=== PATIENT | female | born 1990 | race Caucasian/White ===

== ENCOUNTER 2018-10-10 05:30 | Day surgery (SDC) | payer BC ==
[~2018-10-10] VITALS: Ht 149.9 cm; Wt 49.9 kg
[2018-10-10 05:55] LABS: HCG,QUAL RESULT NEGATIVE (NEGATIVE)
[2018-10-10] MEDS ORDERED: CEFAZOLIN SOD 1 GM in D5W 50 ML IV ONE (07:00)
[2018-10-10] MEDS ORDERED: IOHEXOL 50 ML IV ONE (07:33)
[2018-10-10] MEDS ORDERED: fentaNYL CITRATE/PF 100 MCG/2 ML AMP IVP PRN ×2 (08:30)
[2018-10-10] MEDS ORDERED: KETOROLAC TROMETHAMINE 30 MG VIAL IVP PRN (08:30)
[2018-10-10] MEDS ORDERED: ONDANSETRON HCL 4 MG/2 ML VIAL IVP PRN (08:30)
[2018-10-10] MEDS ORDERED: D5/0.45 NS 1,000 ML IV SCH (08:51)
[2018-10-10] MEDS ORDERED: HYDROmorphone 1 MG INJ. 1 MG/ML AMPUL IVP PRN (09:00)
[2018-10-10] MEDS ORDERED: HYDROcodone/ACETAMIN 5-325 MG TAB (NORCO/ VICODIN) PO PRN ×2 (09:00)
[2018-10-10] MEDS ORDERED: fentaNYL CITRATE/PF 100 MCG/2 ML AMP ONE (09:10)
[2018-10-10] MEDS ORDERED: ONDANSETRON HCL 4 MG/2 ML VIAL ONE (09:10)
[2018-10-10] MEDS ORDERED: HYDROcodone/ACETAMIN 5-325 MG TAB (NORCO/ VICODIN) ONE (10:52)
[2018-10-10 11:04] VITALS: BP_SYST 98
== END 2018-10-10 11:15 | disposition home or self-care (01) ==
LOC: SDS 05:30
PROVIDERS: ATTEND Colon & Rectal Surgery
DX: K81.1 Chronic cholecystitis (principal); J45.20 Mild intermittent asthma, uncomplicated; Z80.41 Family history of malignant neoplasm of ovary; Z79.899 Other long term (current) drug therapy
CPT/HCPCS: 47563; 74300; 84703; 88304; C1727; C1758; J0690; J2405; J3010; J7060; J7120; Q9967; 76000